=== PATIENT | male | born 1995 | race Caucasian/White ===

== ENCOUNTER 2024-03-21 20:12 | Emergency (ER) | payer BC, SELFPAY ==
[~2024-03-21 20:12] MED LIST: Iopamidol-370 76% 500 ML MDV (1 ML CHARGE) ONE
[2024-03-21] MEDS ORDERED: Morphine 4 MG/ML VIAL ONE (20:26)
[2024-03-21] MEDS ORDERED: Ondansetron PF 4 MG/2 ML Vial ONE ×2 (20:26→21:28)
[2024-03-21 21:01] LABS: Hematocrit 49.6 % (42.0-52.0); Hemoglobin 17.2 g/dL (14.0-18.0); Mean Corpuscular HGB CONC 34.7 g/dL (32.0-36.0); Mean Corpuscular Hemoglobin 31.1 pg (27.0-31.0); Mean Corpuscular Volume 89.7 fL (78.0-98.0); Mean Platelet Volume 9.5 fL (7.4-10.4); Platelet Count 369 10x3/uL (130-400); RBC Distribution Width 12.4 % (11.5-14.5); Red Blood Cell (RBC) Count 5.53 mill/uL (4.70-6.10)
[2024-03-21 21:28] LABS: ALT (SGPT) 17 U/L (8-55); AST (SGOT) 20 U/L (5-34); Albumin 5.1 g/dL (3.5-5.0); Alkaline Phosphatase 48 U/L (40-110); Anion Gap 19 mmol/L (10-20); BUN (Urea Nitrogen) 16 mg/dL (8.9-20.6); Bilirubin, Total 0.9 mg/dL (0.2-1.2); Calc. Creatinine Clearance 0 mL/min (70-130); Calcium 10.5 mg/dL (7.8-10.44); Carbon Dioxide 18 mmol/L (22-29); Chloride 106 mmol/L (98-107); Estimated GFR 87; Globulin 3.7 g/dL (2.4-3.5); Glucose 162 mg/dL (70-105); Lipase 20 U/L (8-78); Potassium 3.5 mmol/L (3.5-5.1); Protein, Total 8.8 g/dL (6.0-8.3); Sodium 139 mmol/L (136-145)
[2024-03-21 21:41] LABS: Band 28 % (5-11); Lymphocytes 5 % (21-51); Monocytes 5 % (0-10); Neutrophil 62 % (42-75); Platelet Adequacy Comment Platelets Normal
[2024-03-21] MEDS ORDERED: Dicyclomine 20 MG TAB ONE (22:01)
[2024-03-21] MEDS ORDERED: Metoclopramide HCl 10 MG TAB ONE (23:39)
== END 2024-03-21 23:44 | disposition home or self-care (01) ==
LOC: ERS 20:12
DX: K52.9 Noninfective gastroenteritis and colitis, unspecified (principal)
CPT/HCPCS: 74177; 76705; 80053; 83605; 83690; 85025; 87040; 96361; 96374; 96375; 96376; J2272; J2405